=== PATIENT | male | born 1960 | race Caucasian/White ===

== ENCOUNTER → 2016-07-04 | Outpatient (CLI) | payer MEDICARE ==
--- NOTE | 2016-07-04 10:17 | CT ---
EXAM DESCRIPTION: CT ABDOMEN PELVIS WITHOUT IV CONTRAST CLINICAL HISTORY: Abdomen pain. Renal calculus COMPARISON: None. TECHNIQUE: Noncontrast spiral CT with coronal and sagittal reformatted images FINDINGS: 10 mm nonobstructing lower pole calculus right kidney. Hounsfield unit density 1421. No other renal calculus. No ureteral or bladder calculus Autosomal dominant polycystic kidney disease with innumerable bilateral renal cysts, nearly completely replacing the renal parenchyma. No suspicious renal mass lesion to suggest neoplasm. Polycystic liver disease. Dominant cyst lateral segment left lobe of the liver about 6.1 cm. Atrophic lateral segment left lobe with low-density multinodular cystic change with surface irregularity. There are a few calcified granulomas in the liver. Normal gallbladder. No biliary duct dilation No abnormality of the spleen, pancreas or adrenal glands. No pancreatic duct dilation No abnormality of the stomach or small intestine. Small umbilical hernia containing omental fat. Colonic diverticulosis without diverticulitis. No mass lesion or inflammatory process No pelvic soft tissue mass lesion adenopathy or free fluid Atherosclerotic abdominal aorta with 2.8 cm infra renal abdominal aortic aneurysm No acute bony abnormality. Postsurgical change from lumbar spinal fusion surgery IMPRESSION: Autosomal dominant polycystic kidney disease. Polycystic liver with atrophic diffuse cystic involvement lateral segment left lobe 10 mm nonobstructing calculus lower pole right kidney. No urinary tract obstruction 2.8 cm infrarenal abdominal aortic aneurysm. Recommend imaging follow up in 5 years Electronically signed by: Arnoldo Sellers MD 07/04/2016 10:15
--- NOTE | 2016-07-05 09:09 | RAD ---
EXAM DESCRIPTION: XR ABDOMEN 1 VIEW (KUB) CLINICAL HISTORY: RENAL STONE. FINDINGS/IMPRESSION: 10 mm nonobstructing lower pole calculus right kidney correlates with recent CT. Electronically signed by: Arnoldo Sellers MD 07/05/2016 09:07
== END | disposition home or self-care (01) ==
LOC: CT 09:27
DX: Q61.9 Cystic kidney disease, unspecified (principal)

== ENCOUNTER → 2016-07-20 | Outpatient (CLI) | payer MEDICARE | LOC: GMAB 08:39 | PROVIDERS: ATTEND Family Medicine | DX: N18.3 Chronic kidney disease, stage 3 (moderate) (principal); Q61.9 Cystic kidney disease, unspecified ==

== ENCOUNTER → 2016-08-01 | Outpatient (CLI) | payer MEDICARE | END | disposition home or self-care (01) | LOC: GMAB 10:47 | PROVIDERS: ATTEND Family Medicine | DX: N18.3 Chronic kidney disease, stage 3 (moderate) (principal) ==

== ENCOUNTER → 2016-09-14 | Outpatient (CLI) | payer MEDICARE | END | disposition home or self-care (01) | LOC: GMAB 11:17 | PROVIDERS: ATTEND Family Medicine | DX: Z12.5 Encounter for screening for malignant neoplasm of prostate (principal); E78.2 Mixed hyperlipidemia | CPT/HCPCS: 84403; 84443; G0103 ==

== ENCOUNTER → 2016-10-16 | Outpatient (CLI) | payer MEDICARE | END | disposition home or self-care (01) | LOC: GMAB 10:11 | PROVIDERS: ATTEND Family Medicine | DX: Q61.9 Cystic kidney disease, unspecified (principal); N18.3 Chronic kidney disease, stage 3 (moderate) ==

== ENCOUNTER → 2017-04-12 | Outpatient (CLI) | payer MEDICARE ==
--- NOTE | 2017-04-14 17:18 | CT ---
EXAM DESCRIPTION: Abdoment/Pelvis w/o Contrast CLINICAL HISTORY: Calculus of kidney COMPARISON: July 02, 2016 TECHNIQUE: Contiguous axial images of the abdomen and pelvis were obtained followed by reconstruction images. This exam was performed according to our departmental dose-optimization program, which includes automated exposure control, adjustment of the mA and/or kV according to patient size and/or use of iterative reconstruction technique. FINDINGS: Numerous low-attenuation lesions of varying sizes involving the liver appear unchanged. Extensive bilateral cystic lesions of the kidneys are again seen and appear unchanged. The gallbladder is collapsed and likely nonfasting. Fat but no bowel again extends through a defect in the anterior abdominal wall. 10 mm right renal calculus appears unchanged. Three stones measuring 2 mm and less in the left kidney are not changed. There are presumed radiation seeds in the prostate. No other acute change is seen. The liver, spleen, pancreas and kidneys are otherwise unchanged. Adrenal glands are within normal limits. There is no free fluid in the abdomen or pelvis. There is no bowel obstruction. There is no stranding of the mesenteric fat to suggest an inflammatory response. IMPRESSION: No acute intra-abdominal abnormality. Electronically signed by: Christian Sanchez 04/14/2017 5:16 PM [facility]
== END | disposition home or self-care (01) ==
LOC: CT 08:34
PROVIDERS: ATTEND Urology
DX: N20.0 Calculus of kidney (principal)

== ENCOUNTER 2017-07-02 13:24 | Emergency (ER) | payer MEDICARE ==
[2017-07-02] MEDS ORDERED: LIDOCAINE 1% 10 ML VIAL INJ ONE (13:29)
[2017-07-02] MEDS ORDERED: POVIDONE IODINE 10 % 15 ML UD TOP ONE (13:29)
[2017-07-02] MEDS ORDERED: CHLORHEXIDINE GLUCONATE 4 % 15 ML UD TOP ONE (13:39)
--- NOTE | 2017-07-02 14:31 | ED.PDOC ---
History of Present Illness - General Chief Complaint: Laceration Stated Complaint: Laceration R finger Time Seen by Provider: 07/02/17 14:28 Source: patient Exam Limitations: no limitations - History of Present Illness Initial Comments: CUT L INDEX FINGER JUST PT ON TABLE SAW, WOODWORKING. ALLERGIC TO TETANUS. TAKES PLAVIX, CILOSTAZOL, BABY ASA, FISH OIL. Timing/Duration: just prior to arrival Severity: severe Location: hands Improving Factors: nothing Worsening Factors: nothing Associated Symptoms: denies symptoms Allergies/Adverse Reactions: Allergies Tetanus Toxoid Allergy (Verified 07/12/14 09:56) Gabapentin Adverse Reaction (Verified 07/12/14 09:56) Home Medications: Ambulatory Orders Amlodipine Besylate [Norvasc] 10 mg PO DAILY 07/12/14 Aspirin [Baby Aspirin] 81 mg PO DAILY 07/12/14 Atorvastatin Calcium [Lipitor] 10 mg PO DAILY 07/12/14 Cilostazol 50 mg PO BID 07/12/14 Clopidogrel Bisulfate [Plavix] 75 mg PO DAILY 07/12/14 Diclofenac [Zorvolex] 18 mg PO DAILY 07/12/14 Lisinopril [Prinivil] 20 mg PO DAILY 07/12/14 Metoprolol Succinate [Metoprolol Succinate ER] 50 mg PO BID 07/12/14 Nitroglycerin [Nitrolingual Pumpspray] 0.4 mg TL ONCE 07/12/14 Ranolazine [Ranexa] 1,000 mg PO BID 07/12/14 Tramadol HCl 50 mg PO Q4H 07/12/14 Cephalexin Monohydrate [Keflex] 500 mg PO BID #14 cap 07/02/17 Review of Systems - Review of Systems Skin: States: lesions All other Systems: Reviewed and Negative Past Medical History (General) - Patient Medical History Hx Congestive Heart Failure: No Hx Diabetes: No Physical Exam - Physical Exam General Appearance: Alert, Obvious distress Eyes, Ears, Nose, Throat Exam: PERRL/EOMI Neck: full range of motion Cardiovascular/Chest: normal peripheral pulses Extremity: normal range of motion Neurologic: no motor/sensory deficits, alert, normal mood/affect, oriented x 3 Skin Exam: other - L INDEX FINGER, 4.9 CM FACERATION THROUGH SKIN, THROUGH SOFT TISSUE INTO MUSCLE. TENDONS AND BONE IN TACT. Skin Problem Location: upper extremities Skin Character: lesion Lymphatic: no adenopathy Procedures - Laceration/Wound Repair Left Finger Wound Length (cm): 4.9 Wound's Depth, Shape: into muscle, irregular - IRREGULAR ANGULATION. AVULSED AREAS. , flap, nail-avulsed - PARTIALLY, contused tissue Wound Explored: no foreign body removed Irrigated w/ Saline (cc's): 250 Betadine Prep?: Yes - THEN HIBICLENZ. Anesthesia: 1% Lidocaine Volume Anesthetic (cc's): 9 Wound Debrided: minimal Wound Repaired With: sutures Suture Size/Type: 4:0, 3:0, prolene, fast absorbing gut Number of Sutures: 7 - DEEP LAYER: 4-0 CHROMIC X 2. SUPERFICIAL LAYER: 3-0 NYLON UNINTERRUPTED X 2, INTERRUPTED X 3. Layer Closure?: Yes Deep Layer Suture Size/Type: 4:0, chromic Number Deep Layer Sutures: 2 Sterile Dressing Applied?: Yes Splint Applied?: No Sling Applied?: No Departure - Departure Clinical Impression: Laceration of finger of left hand Disposition: Discharge to Home or Self Care Condition: Good Departure Forms: ED Discharge - Pt. Copy, Patient Portal Self Enrollment Diet: resume usual diet Activity: no pushing/pulling with affected limb Referrals: Jorge Salmon MD [Primary Care Provider] - 1-2 Weeks Prescriptions: Cephalexin Monohydrate [Keflex] 500 mg PO BID #14 cap Home Medications: Ambulatory Orders Amlodipine Besylate [Norvasc] 10 mg PO DAILY 07/12/14 Aspirin [Baby Aspirin] 81 mg PO DAILY 07/12/14 Atorvastatin Calcium [Lipitor] 10 mg PO DAILY 07/12/14 Cilostazol 50 mg PO BID 07/12/14 Clopidogrel Bisulfate [Plavix] 75 mg PO DAILY 07/12/14 Diclofenac [Zorvolex] 18 mg PO DAILY 07/12/14 Lisinopril [Prinivil] 20 mg PO DAILY 07/12/14 Metoprolol Succinate [Metoprolol Succinate ER] 50 mg PO BID 07/12/14 Nitroglycerin [Nitrolingual Pumpspray] 0.4 mg TL ONCE 07/12/14 Ranolazine [Ranexa] 1,000 mg PO BID 07/12/14 Tramadol HCl 50 mg PO Q4H 07/12/14 Cephalexin Monohydrate [Keflex] 500 mg PO BID #14 cap 07/02/17 Additional Instructions: Please see your doctor or return to the ER in 8 - 10 days to remove the sutures.
[2017-07-02] MEDS ORDERED: NEOMYCIN-BACITRACIN-POLYMYXIN 0.9 GM UD TOP ONE (14:40)
== END 2017-07-02 14:42 | disposition home or self-care (01) ==
LOC: ER 13:24
DX: S61.211A Laceration without foreign body of left index finger without damage to nail, initial encounter (principal); Z88.7 Allergy status to serum and vaccine; Z79.02 Long term (current) use of antithrombotics/antiplatelets; Z79.82 Long term (current) use of aspirin; W29.8XXA Contact with other powered hand tools and household machinery, initial encounter

== ENCOUNTER 2017-07-03 17:44 | Emergency (ER) | payer MEDICARE ==
[2017-07-03] MEDS ORDERED: NEOMYCIN-BACITRACIN-POLYMYXIN 0.9 GM UD TOP ONE (18:17)
--- NOTE | 2017-07-03 18:34 | ED.PDOC ---
History of Present Illness - General Chief Complaint: Wound Recheck Stated Complaint: Worried about wound Time Seen by Provider: 07/03/17 17:47 Source: patient Exam Limitations: no limitations - History of Present Illness Initial Comments: the patient is a 57-year-old male presenting to the emergency room for follow-up on a finger laceration that occurred yesterday. The patient took down the dressing this morning and was convinced that bone was sticking out of the wound. On examination of the second digit of the left hand, there is no bone exposed. The wound is healed nicely healing nicely from this point. No evidence of infection. No evidence of dehiscence. No evidence of bone exposure. The patient was counseled. The wound was redressed. Timing/Duration: 24 hours Severity: mild Improving Factors: nothing Worsening Factors: nothing Associated Symptoms: denies symptoms Allergies/Adverse Reactions: Allergies Tetanus Toxoid Allergy (Verified 07/03/17 18:25) Gabapentin Adverse Reaction (Verified 07/03/17 18:25) Home Medications: Ambulatory Orders Amlodipine Besylate [Norvasc] 10 mg PO DAILY 07/12/14 Aspirin [Baby Aspirin] 81 mg PO DAILY 07/12/14 Atorvastatin Calcium [Lipitor] 10 mg PO DAILY 07/12/14 Cilostazol 50 mg PO BID 07/12/14 Clopidogrel Bisulfate [Plavix] 75 mg PO DAILY 07/12/14 Diclofenac [Zorvolex] 18 mg PO DAILY 07/12/14 Lisinopril [Prinivil] 20 mg PO DAILY 07/12/14 Metoprolol Succinate [Metoprolol Succinate ER] 50 mg PO BID 07/12/14 Nitroglycerin [Nitrolingual Pumpspray] 0.4 mg TL ONCE 07/12/14 Ranolazine [Ranexa] 1,000 mg PO BID 07/12/14 Tramadol HCl 50 mg PO Q4H 07/12/14 Cephalexin Monohydrate [Keflex] 500 mg PO BID #14 cap 07/02/17 Review of Systems - Review of Systems Constitutional: States: no symptoms reported EENTM: States: no symptoms reported Respiratory: States: no symptoms reported Cardiology: States: no symptoms reported Gastrointestinal/Abdominal: States: no symptoms reported Genitourinary: States: no symptoms reported Musculoskeletal: States: see HPI Skin: States: see HPI Endocrine: States: no symptoms reported All other Systems: No Change from Baseline Past Medical History (General) - Patient Medical History Hx Congestive Heart Failure: No Hx Diabetes: No Physical Exam - Physical Exam General Appearance: Alert, Anxious, No apparent distress Eye Exam: bilateral normal Ears, Nose, Throat: hearing grossly normal Respiratory: no respiratory distress, no accessory muscle use Cardiovascular/Chest: normal peripheral pulses, no edema Peripheral Pulses: radial,right: 2+, radial,left: 2+ Rectal Exam: deferred Extremity: normal range of motion, no pedal edema, normal capillary refill 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 No evidence of infection or dehiscence at this time. Progress - Progress Progress: 07/03/17 18:34 the patient is a 57-year-old male presenting here for reevaluation of his finger laceration that was repaired yesterday. It does appear to be healing appropriately. He needs to continue the plan of care started yesterday. He needs to follow-up with his primary care doctor as previously established. ER warnings were given for any worsening. Departure - Departure Clinical Impression: Encounter for wound re-check Disposition: Discharge to Home or Self Care Condition: Fair Departure Forms: ED Discharge - Pt. Copy, Patient Portal Self Enrollment Diet: regular diet Activity: increase activity as tolerated Referrals: Jorge Salmon MD [Primary Care Provider] - 1-2 Weeks Home Medications: Ambulatory Orders Amlodipine Besylate [Norvasc] 10 mg PO DAILY 07/12/14 Aspirin [Baby Aspirin] 81 mg PO DAILY 07/12/14 Atorvastatin Calcium [Lipitor] 10 mg PO DAILY 07/12/14 Cilostazol 50 mg PO BID 07/12/14 Clopidogrel Bisulfate [Plavix] 75 mg PO DAILY 07/12/14 Diclofenac [Zorvolex] 18 mg PO DAILY 07/12/14 Lisinopril [Prinivil] 20 mg PO DAILY 07/12/14 Metoprolol Succinate [Metoprolol Succinate ER] 50 mg PO BID 07/12/14 Nitroglycerin [Nitrolingual Pumpspray] 0.4 mg TL ONCE 07/12/14 Ranolazine [Ranexa] 1,000 mg PO BID 07/12/14 Tramadol HCl 50 mg PO Q4H 07/12/14 Cephalexin Monohydrate [Keflex] 500 mg PO BID #14 cap 07/02/17 Additional Instructions: the patient is a 57-year-old male presenting here for reevaluation of his finger laceration that was repaired yesterday. It does appear to be healing appropriately. He needs to continue the plan of care started yesterday. He needs to follow-up with his primary care doctor as previously established. ER warnings were given for any worsening.
[2017-07-03 18:35] VITALS: BP 134/68; TEMP 98.2; O2SAT 97
== END 2017-07-03 18:35 | disposition home or self-care (01) ==
LOC: ER 17:44
DX: S61.211D Laceration without foreign body of left index finger without damage to nail, subsequent encounter (principal); X58.XXXD Exposure to other specified factors, subsequent encounter

== ENCOUNTER → 2017-09-26 | Outpatient (CLI) | payer MEDICARE | LOC: GMAB 10:54 | PROVIDERS: ATTEND Family Medicine | DX: N18.3 Chronic kidney disease, stage 3 (moderate) (principal) ==

== ENCOUNTER → 2017-10-08 | Outpatient (CLI) | payer MEDICARE ==
--- NOTE | 2017-10-08 08:49 | US ---
EXAM DESCRIPTION: Renal CLINICAL HISTORY: N18.3-CHORONIC KIDNEY DISEASE STAGE 3 COMPARISON: None Available. TECHNIQUE: Sonographic images of the kidneys were acquired bilaterally and submitted for review. FINDINGS: Right kidney Size: 15.4 x 7.7 x 8.4 cm Echogenicity: Increased Parenchymal thickness and contour: Normal Pelvicalyceal dilatation: None Calculi: None Cysts: Polycystic kidney disease Masses:None Left kidney Size: 16.2 x 9.3 x 7.8 cm Echogenicity: Increased Parenchymal thickness and contour: Normal Pelvicalyceal dilatation: None Calculi: None Cysts: Polycystic kidney disease. Masses:None Other findings IVC/aorta: Limited images are unremarkable. Urinary bladder: Normal IMPRESSION: Polycystic kidney disease is observed in both kidneys. Electronically signed by: Rashid Hubbard MD 10/08/2017 8:47 AM CDT
== END ==
LOC: US 07:53
PROVIDERS: ATTEND Internal Medicine Nephrology
DX: N18.3 Chronic kidney disease, stage 3 (moderate) (principal); Q61.3 Polycystic kidney, unspecified

== ENCOUNTER → 2017-10-31 | Outpatient (CLI) | payer MEDICARE | LOC: LAB.O 10:19 | PROVIDERS: ATTEND Internal Medicine Nephrology | DX: N18.3 Chronic kidney disease, stage 3 (moderate) (principal); I10 Essential (primary) hypertension; N20.0 Calculus of kidney ==

== ENCOUNTER → 2017-11-05 | Outpatient (CLI) | payer MEDICARE ==
--- NOTE | 2017-11-05 11:06 | RAD ---
EXAM DESCRIPTION: KUB CLINICAL HISTORY: 57 years Male, RT SIDED KIDNEY STONES COMPARISON: July 04, 2016 FINDINGS: A 1 cm calcification projects over the inferior pole right kidney, unchanged from the previous exam. Few tiny left renal calculi are also suspected but stable. No ureteral calculus is identified. Vascular calcifications are noted. Postoperative changes in the lumbar spine and sacrum. IMPRESSION: Bilateral nephrolithiasis including a 1 cm calculus projecting over the inferior pole of the right kidney, unchanged from June,. Electronically signed by: Burt Singletary MD 11/05/2017 11:05 AM CDT
== END ==
LOC: RAD 08:34
PROVIDERS: ATTEND Urology
DX: N20.0 Calculus of kidney (principal)

== ENCOUNTER → 2017-12-18 | Outpatient (CLI) | payer MEDICARE | LOC: GMAE 11:03 | PROVIDERS: ATTEND Family Medicine | DX: I10 Essential (primary) hypertension (principal) ==

== ENCOUNTER → 2018-01-23 | Outpatient (CLI) | payer MEDICARE ==
--- NOTE | 2018-01-23 10:18 | RAD ---
EXAM DESCRIPTION: XR ABDOMEN 1 VIEW (KUB) CLINICAL HISTORY: RENAL STONE COMPARISON: November 05, 2017 TECHNIQUE: KUB FINDINGS: A rounded approximate 9 mm calculus overlies the right paraspinous region likely within the right renal collecting system. Additionally a smaller calculus is suggested more laterally on the right estimated at approximately 2 x 4 mm. Definite left-sided renal calculi are not apparent. Previous internal fixation of the lumbosacral junction is noted with atherosclerotic aorta. Additional abnormalities are not apparent. IMPRESSION: Persistent right renal or right renal pelvic stone approximately 9 mm in size likely with an additional small intrarenal calculus more peripherally in the right kidney. Electronically signed by: Arnoldo Layne MD 01/23/2018 10:16 AM CDT
== END ==
LOC: RAD 09:02
PROVIDERS: ATTEND Urology
DX: N20.0 Calculus of kidney (principal)

== ENCOUNTER → 2018-04-07 | Outpatient (CLI) | payer MEDICARE ==
--- NOTE | 2018-04-07 11:54 | RAD ---
EXAM DESCRIPTION: KUB CLINICAL HISTORY: KIDNEY STONE COMPARISON: CT abdomen pelvis April 12, 2017. FINDINGS: Stable bilateral nephrolithiasis with the largest stone projecting over the inferior pole of the right kidney measuring up to 1.1 cm respectively. Smaller stones bilaterally are sub-3 mm in size. No stones along the expected course of the ureters. Stable hardware noted within the lumbosacral spine. No organomegaly is seen. IMPRESSION: Stable bilateral nephrolithiasis. Electronically signed by: Jeevan Causey MD 04/07/2018 11:52 AM [facility]
== END ==
LOC: RAD 10:06
PROVIDERS: ATTEND Urology
DX: N20.0 Calculus of kidney (principal)

== ENCOUNTER → 2018-05-30 | Outpatient (CLI) | payer MEDICARE ==
--- NOTE | 2018-05-30 17:01 | US ---
EXAM DESCRIPTION: Renal: Ultrasound. CLINICAL HISTORY: 57 years Male CKD STAGE 3. Known polycystic kidney disease. COMPARISON: Bilateral renal arterial Doppler evaluation on the same visit. TECHNIQUE: Transcutaneous scanning: Two-dimensional and Doppler modes. FINDINGS: Right kidney measures 15.8 x 8.0 x 6.7 cm; mid-renal cortical thickness difficult to evaluate. Cortex with normal echoes. . Multiple cysts. Largest cyst measures 3 x 3 x 2.7 cm. No hydronephrosis No echogenic stones. Lobulated contour of the kidney with no perinephric fluid. Normal vascularity. Proximal ureter not visualized. Left kidney measures 17.8 x 7.5 x 7.0 cm; mid-renal cortical thickness difficult to evaluate. Cortex with normal echoes.. Largest cyst 4.8 x 2.5 x 4.0 cm. No hydronephrosis. No echogenic stones. Lobulated contour of the kidney with no perinephric fluid. Normal vascularity.. Proximal ureter not visualized. Urinary bladder was visualized. Prevoid volume 60.4 x 5.3 x 4.3 cm equals 78.6 mL. Ureteral jet in the bladder seen bilaterally by Doppler. Patient unable to void. Abdominal aorta: Proximal 1.9 cm. Mid 2.5 cm. Distal abdominal aorta 3.0 x 2.6 x 3.0 cm. Atherosclerotic changes. IMPRESSION: 1. Bilateral kidneys enlarged with polycystic kidney disease. Stage III chronic kidney disease. The cortex that was visualized in the kidneys bilaterally had normal echoes. No hydronephrosis bilaterally or large calcifications. Proximal ureters were not seen. 2. Bilateral ureteral jets were seen in the urinary bladder by Doppler. 3. Distal abdominal aorta 3.0 cm maximum diameter. [employer] guidelines for imaging follow-up is 3 years. Please see below*. *3.0 cm abdominal aortic aneurysm Recommend follow-up every 3 years. Reference: J Vasc Surg 2009 Oct;50(4 Suppl):S2-49. Electronically signed by: Christian Michaels MD 05/30/2018 5:00 PM [facility]
== END ==
LOC: US 09:34
PROVIDERS: ATTEND Internal Medicine Nephrology
DX: N18.3 Chronic kidney disease, stage 3 (moderate) (principal)

== ENCOUNTER → 2018-09-17 | Outpatient (CLI) | payer MEDICARE ==
--- NOTE | 2018-09-18 08:35 | US ---
EXAM DESCRIPTION: Renal: Ultrasound. CLINICAL HISTORY: 58 years Male KIDNEY STONES 10 mm kidney stone seen on prior CT scan. COMPARISON: Ultrasound kidney 05/30/2018 and 10/08/2017. CT scan of the abdomen and pelvis without contrast 04/12/2017. TECHNIQUE: Transcutaneous scanning: Two-dimensional and Doppler modes. FINDINGS: Multiple cysts in the right kidney again noted. Right kidney measures 15.1 x 8.1 x 7.0 cm; mid-renal cortical thickness 15 to 20 mm . Echogenicity slightly increased but less than that of the liver. Largest cyst measures 2.7 x 2.7 cm and is either abutting a cyst or as a septation. No hydronephrosis scattered echogenic foci are noted in the kidney. Lobulated contour of the kidney with no perinephric fluid. Normal vascularity. Proximal ureter not visualized. Multiple cysts in the left kidney again noted. Left kidney measures 16.8 x 7.6 x 6.8 cm; mid-renal cortical thickness is greater than 15 cm.. Echogenicity is slightly increased but less than that of the liver. Largest cyst is in the lower pole and measures 4.8 x 4.0 x 2.5 cm. No hydronephrosis. Echogenic foci in the kidney. Lobulated contour of the kidney with no perinephric fluid. Normal vascularity.. Proximal ureter not visualized. Urinary bladder was visualized. Prevoid dimensions 6.5 x 5.3 x 4.4 for estimated volume 78.6 mL. Ureteral jet in the bladder bilaterally by Doppler. Post void volume not evaluated. Abdominal aorta: not measured. IMPRESSION: Polycystic kidneys bilaterally enlarged with thickened cortex and increased echogenicity but less than that of the liver. Echogenic foci are noted in both kidneys but no definite shadowing, no hydronephrosis or other signs of obstruction. Stable since the prior examination. A 10 mm stone was visualized in the inferior collecting system of the right kidney on the prior CT scan. Number of cysts bilaterally limits the sensitivity of this examination for renal mass or renal calcifications. If either of these conditions are suspected, consider CT scan of the kidneys without and with IV contrast. Electronically signed by: Christian Michaels MD 09/18/2018 8:32 AM CDT
== END ==
LOC: US 08:28
PROVIDERS: ATTEND Internal Medicine Nephrology
DX: Q61.3 Polycystic kidney, unspecified (principal); N20.0 Calculus of kidney

== ENCOUNTER → 2018-11-11 | Outpatient (CLI) | payer MEDICARE ==
--- NOTE | 2018-11-11 12:06 | US ---
EXAM DESCRIPTION: Renal: Ultrasound. CLINICAL HISTORY: 58 years Male LQPAIN. Autosomal dominant polycystic kidney disease. Also multiple hepatic cysts. COMPARISON: Ultrasound kidneys 09/17/2018. TECHNIQUE: Transcutaneous scanning: Two-dimensional and Doppler modes. FINDINGS: Right kidney measures 13.5 x 7.8 x 7.1 cm; multiple cysts are visualized. Largest cyst 3.3 cm. Visualized cortex shows increased echogenicity compared to the liver. No hydronephrosis 6.4 mm echogenic stone inferior lower pole.. Lobulated contour of the kidney with no perinephric fluid. Minimal Doppler color vascularity.. Proximal ureter not visualized. Left kidney measures 16.2 x 10.4 x 10.1 cm; multiple cysts. Cortex that is visible shows increased echogenicity compared to the liver. Largest cyst measures 6.4 x 6.0 cm. No hydronephrosis. No echogenic stones. Lobulated contour of the kidney with no perinephric fluid. Minimal color vascularity.. Proximal ureter not visualized. Urinary bladder was visualized. Contracted. Ureteral jet in the bladder not seen by Doppler. Post void volume not recorded. Abdominal aorta: not measured. Limited views of the liver show no cysts. IMPRESSION: 1. Enlarged right kidney with multiple cysts. Largest cyst 3.3 cm. Larger than on the prior study. Parenchymal echogenicity indicates moderate disease. This has progressed since the prior study. No hydronephrosis or perinephric fluid. 6.4 mm echogenic stone in the inferior lower pole. Decreased vascularity. 2. Enlarged left kidney with multiple cysts. Largest cyst over 6 cm. Increased since the prior study. Parenchymal echogenicity indicates moderate disease. This has progressed since the prior study. No hydronephrosis or perinephric fluid. Echogenic stones. Decreased vascularity. 3. Limited views of the urinary bladder with no ureteral jets seen by Doppler. Electronically signed by: Christian Michaels MD 11/11/2018 12:04 PM CDT
== END ==
LOC: US 07:54
PROVIDERS: ATTEND Internal Medicine Nephrology
DX: N20.0 Calculus of kidney (principal); N28.1 Cyst of kidney, acquired; Z87.442 Personal history of urinary calculi

== ENCOUNTER → 2018-12-12 | Outpatient (CLI) | payer MEDICARE ==
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
== END ==
LOC: CT 09:52
PROVIDERS: ATTEND General Practice
DX: S30.1XXA Contusion of abdominal wall, initial encounter (principal); Q61.3 Polycystic kidney, unspecified; Q44.6 Cystic disease of liver; V89.2XXD Person injured in unspecified motor-vehicle accident, traffic, subsequent encounter

== ENCOUNTER 2019-02-21 18:39 | Emergency (ER) | payer MEDICARE ==
[2019-02-21 18:49] VITALS: O2SAT 97
--- NOTE | 2019-02-21 19:27 | RAD ---
EXAM: Fingers,Left CLINICAL INDICATION: Saw injury left middle finger COMPARISON: There is no previous study for comparison. FINDINGS: 3 views of the left middle finger reveal soft tissue swelling and irregularity of the distal middle finger. There is no underlying fracture or bony abnormality. There is no radiopaque foreign body. IMPRESSION: Soft tissue laceration, otherwise negative. Electronically signed by: Rick Baptiste MD 02/21/2019 7:26 PM CDT
[2019-02-21] MEDS ORDERED: LIDOCAINE 1% 10 ML VIAL INJ ONE (20:14)
--- NOTE | 2019-02-21 20:39 | ED.PDOC ---
History of Present Illness - General Chief Complaint: Laceration Stated Complaint: Laceration to L 3rd digit Time Seen by Provider: 02/21/19 19:07 Source: patient, RN notes reviewed, Vital Signs reviewed, family - Exam Limitations: no limitations - History of Present Illness Timing/Duration: just prior to arrival Severity: mild Location: hands - left distal third finger Improving Factors: nothing Worsening Factors: movement Associated Symptoms: denies symptoms Allergies/Adverse Reactions: Allergies Tetanus Toxoid Allergy (Verified 07/03/17 18:25) Gabapentin Adverse Reaction (Verified 07/03/17 18:25) Home Medications: Ambulatory Orders Amlodipine Besylate [Norvasc] 10 mg PO DAILY 07/12/14 Aspirin [Baby Aspirin] 81 mg PO DAILY 07/12/14 Atorvastatin Calcium [Lipitor] 10 mg PO DAILY 07/12/14 Cilostazol 50 mg PO BID 07/12/14 Clopidogrel Bisulfate [Plavix] 75 mg PO DAILY 07/12/14 Diclofenac [Zorvolex] 18 mg PO DAILY 07/12/14 Lisinopril [Prinivil] 20 mg PO DAILY 07/12/14 Metoprolol Succinate [Metoprolol Succinate ER] 50 mg PO BID 07/12/14 Nitroglycerin [Nitrolingual Pumpspray] 0.4 mg TL ONCE 07/12/14 Ranolazine [Ranexa] 1,000 mg PO BID 07/12/14 Tramadol HCl 50 mg PO Q4H 07/12/14 Cephalexin Monohydrate [Keflex] 500 mg PO BID #14 cap 07/02/17 Clindamycin HCl [Cleocin] 300 mg PO Q6H #28 capsule 02/21/19 Review of Systems - Review of Systems Constitutional: States: no symptoms reported EENTM: States: no symptoms reported Respiratory: States: no symptoms reported Cardiology: States: no symptoms reported Gastrointestinal/Abdominal: States: no symptoms reported Genitourinary: States: no symptoms reported Musculoskeletal: States: other - left third distal finger tip Skin: States: other - laceration of left third distal fingertip Neurological: States: no symptoms reported All other Systems: Reviewed and Negative Past Medical History (General) - Patient Medical History Hx Stroke: No Hx Congestive Heart Failure: No Hx Hypertension: Yes Hx Diabetes: No Hx Renal Disease: Yes - Polycystic disease, Stage 3 Hx MRSA: No Surgical History: tonsillectomy - Vaccination History Hx Influenza Vaccination: No Hx Pneumococcal Vaccination: No - Social History Hx Tobacco Use: Yes Hx Alcohol Use: Yes - Occasional Family Medical History - Family History Father Family History: Unknown Living Status: Physical Exam - Physical Exam General Appearance: Alert, Well Developed, Well Hydrated, Well Nourished, Other - patient smells heavily of cigarette smoke Eyes, Ears, Nose, Throat Exam: PERRL/EOMI, normal ENT inspection, pharynx normal Neck: non-tender, full range of motion, supple, normal inspection Cardiovascular/Chest: normal peripheral pulses, regular rate, rhythm, no edema, no gallop, no JVD, no murmur Respiratory: chest non-tender, no respiratory distress, no accessory muscle use, rhonchi Gastrointestinal/Abdominal: normal bowel sounds, non tender, soft Back Exam: normal inspection, no CVA tenderness Extremity: normal range of motion, other - distal tuft amputation of the left distal third finger. It is bleeding. 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 Lymphatic: no adenopathy Progress - Progress Progress: 02/21/19 20:42 differential diagnosis includes distal tuft fracture, partial finger amputation, skin laceration, avulsion fracture among others. Patient continued to bleed from the partially agitated fingertip. I washed the wound out with 500 cc of normal saline. I used silver nitrate sticks to quite delayed bleeding wound bed and was successful in obtaining hemostasis.plan discharge home. Patient does not take tetanus as he is allergic to it. They voice understanding and agreement. Baljit Becker M.D. #[id number] - Results/Orders Results/Orders: EXAM: XR Fingers,Left CLINICAL INDICATION: Saw injury left middle finger COMPARISON: There is no previous study for comparison. FINDINGS: 3 views of the left middle finger reveal soft tissue swelling and irregularity of the distal middle finger. There is no underlying fracture or bony abnormality. There is no radiopaque foreign body. IMPRESSION: Soft tissue laceration, otherwise negative. Electronically signed by: Rick Baptiste MD 02/21/2019 7:26 PM Departure - Departure Clinical Impression: Laceration Traumatic amputation of finger tip Qualifiers: Encounter type: initial encounter Qualified Code(s): S68.119A - Complete traumatic metacarpophalangeal amputation of unspecified finger, initial encounter Time of Disposition: 20:45 Disposition: Discharge to Home or Self Care Condition: Good Departure Forms: ED Discharge - Pt. Copy, Patient Portal Self Enrollment Instructions: DI for Avulsion Laceration (Not Requiring Sutures), Amputation of the Finger or Fingertip (DC) Referrals: Jorge Hart MD [Primary Care Provider] - 1-2 Weeks Prescriptions: Clindamycin HCl [Cleocin] 300 mg PO Q6H #28 capsule Home Medications: Ambulatory Orders Amlodipine Besylate [Norvasc] 10 mg PO DAILY 07/12/14 Aspirin [Baby Aspirin] 81 mg PO DAILY 07/12/14 Atorvastatin Calcium [Lipitor] 10 mg PO DAILY 07/12/14 Cilostazol 50 mg PO BID 07/12/14 Clopidogrel Bisulfate [Plavix] 75 mg PO DAILY 07/12/14 Diclofenac [Zorvolex] 18 mg PO DAILY 07/12/14 Lisinopril [Prinivil] 20 mg PO DAILY 07/12/14 Metoprolol Succinate [Metoprolol Succinate ER] 50 mg PO BID 07/12/14 Nitroglycerin [Nitrolingual Pumpspray] 0.4 mg TL ONCE 07/12/14 Ranolazine [Ranexa] 1,000 mg PO BID 07/12/14 Tramadol HCl 50 mg PO Q4H 07/12/14 Cephalexin Monohydrate [Keflex] 500 mg PO BID #14 cap 07/02/17 Clindamycin HCl [Cleocin] 300 mg PO Q6H #28 capsule 02/21/19
[2019-02-21 20:51] VITALS: BP 129/79; TEMP 97.4
== END 2019-02-21 20:51 | disposition home or self-care (01) ==
LOC: ER 18:39
DX: S68.123A Partial traumatic metacarpophalangeal amputation of left middle finger, initial encounter (principal); Q61.3 Polycystic kidney, unspecified; N18.3 Chronic kidney disease, stage 3 (moderate); I12.9 Hypertensive chronic kidney disease with stage 1 through stage 4 chronic kidney disease, or unspecified chronic kidney disease; Z88.7 Allergy status to serum and vaccine; Z88.8 Allergy status to other drugs, medicaments and biological substances; Z79.82 Long term (current) use of aspirin; Z79.899 Other long term (current) drug therapy; Z87.891 Personal history of nicotine dependence; W29.3XXA Contact with powered garden and outdoor hand tools and machinery, initial encounter; Y93.89 Activity, other specified; Y92.9 Unspecified place or not applicable

== ENCOUNTER → 2020-01-22 | Outpatient (CLI) | payer MEDICARE ==
--- NOTE | 2020-01-25 15:33 | RAD ---
EXAM DESCRIPTION: Hand,Right 3 Views: CR/DR/XR CLINICAL HISTORY: 59 years Male PN IN RIGHT HAND COMPARISON: None. TECHNIQUE: 3 VIEWS AP. Lateral. Oblique. Right hand and wrist. Technically difficult study due to dressing material over the hand and wrist. Patient difficulty with positioning. FINDINGS: Dressing material over the right hand and wrist. Normal bone density. Minimal narrowing of the right thumb metacarpal carpal joint. No radiodense loose bodies. No fracture or dislocation. IMPRESSION: Minimal arthrosis right thumb carpometacarpal joint. No fracture or dislocation. Technically limited study due to dressing over the right hand and wrist. Electronically signed by: Christian Michaels MD 01/25/2020 3:31 PM CDT
== END ==
LOC: RAD 14:32
PROVIDERS: ATTEND Registered Nurse General Practice
DX: M18.9 Osteoarthritis of first carpometacarpal joint, unspecified (principal)